=== PATIENT | male | born 1930 | race Caucasian/White ===

== ENCOUNTER 2016-11-18 08:43 | Observation (INO) | payer MEDICARE ==
[~2016-11-18] VITALS: Ht 167.6 cm; Wt 65.0 kg
[2016-11-18] VITALS (8 sets, daily range): BP systolic 106–164; BP diastolic 62–80; PULSE 68–85; RESP 16–18; TEMP 96.1–97.7; O2SAT 95–98
[~2016-11-18 08:43] MED LIST: CLOP75 PO; METO25 PO; NITR0.4S SL; RAMI2.5C29 PO; ZOCO40TA PO
--- NOTE | 2016-11-18 09:03 | PD ---
HPI Chief Complaint: Dizziness Time Seen by Provider: 08:54 Travel History International Travel<30 days: No Contact w/Intl Traveler<30days: No History of Present Illness HPI 86-year-old male arrives with a complaint of lightheadedness as if he is going to lose consciousness since he woke up this morning. He sat on the edge of his bed upon waking up. He then reports feeling as if everything was in "slow motion" as he attempted to walk to his bedroom door, at times leaning against furniture to do so. He states he almost fell down. He goes on to state "I couldn't move." No similar prior event has occurred. He denies the sensation of vertigo. EMS and RN report he complained of nausea. He offers no other medical complaint. The review of systems is negative. There has been no change in medication or his normal routine lately. PFSH Past Medical History Autoimmune Disease: No Blood Disorders: No Cancer: No Cardiac Catheterization: Yes (2004) Cardiovascular Problems: Yes (CARDIAC STENT X 1) High Cholesterol: Yes Chemotherapy: No Coronary Artery Disease: Yes Diabetes: No Diminished Hearing: No Endocrine: No Glaucoma: No Genitourinary: Yes (POST TURP BPH) Hepatitis: No Hiatal Hernia: No Hypertension: Yes Immune Disorder: No Musculoskeletal: No Neurologic: No Psychiatric: No Respiratory: No Immunizations Current: No Radiation Therapy: No Thyroid Disease: No Past Surgical History Abdominal Surgery: No AICD: No Body Medical Devices: CARDIAC STENT X 1; INT FIX 2 PLATES IN LEFT ELBOW Cardiac Surgery: Yes (CARDIAC CATH WITH STENT PLACEMENT X1 2003 ) Coronary Stent: Yes (2004) Endocrine Surgery: No Eye Surgery: Yes (PTOSIS LEFT UPPER EYELID REPAIR ) Genitourinary Surgery: Yes (RESECTION OF PROSTATE (TURP) ) Gynecologic Surgery: No Joint Replacement: No Pacemaker: No Thoracic Surgery: Yes (TUMOR LEFT BREAST EXCISED, BENIGN / FATTY TUMOR ON BACK X 2 ) Other Surgery: Yes (FATTY TUMORS REMOVED OFF BACK IN 80'S 50'S OFF OF RIGHT CHEST) Social History Alcohol Use: No Tobacco Use: No Substance Use: No Allergies-Medications (Allergen,Severity, Reaction): Coded Allergies: Penicillin (Verified Allergy, Severe, ANAPHYLAXIS, 11/18/16) Reported Meds & Prescriptions Reported Meds & Active Scripts Active Reported Temazepam 15 Mg Cap 15 Mg PO HS PRN Simvastatin 20 Mg Tab 20 Mg PO HS Ramipril 5 Mg Cap 5 Mg PO DAILY Plavix (Clopidogrel Bisulfate) 75 Mg Tab 75 Mg PO DAILY Nitrostat (Nitroglycerin) 0.4 Mg Subl 0.4 Mg SL PRN 1 TAB SL EVERY 5 MINS X 3 PRN CHEST PAIN Metoprolol Tartrate 25 mg (Metoprolol Tartrate) 25 Mg Tab 12.5 Mg PO DAILY HOLD FOR SYSTOLIC BP BELOW 120 Zocor 40 mg (Simvastatin) 40 Mg Tab 20 Mg PO HS Altace (Ramipril) 2.5 Mg Cap 5 Mg PO Q CELY HOLD FOR SYSTOLIC BP OF BELOW 120 Plavix (Clopidogrel Bisulfate) 75 Mg Tab 75 Mg PO DAILY Review of Systems Except as stated in HPI: all other systems reviewed are Neg General / Constitutional: No: Fever HENT: Positive: Lightheadedness, No: Headaches Cardiovascular: No: Chest Pain or Discomfort, Palpitations, Diaphoresis, Syncope Respiratory: No: Shortness of Breath, Night Sweats Gastrointestinal: No: Nausea, Vomiting, Diarrhea Neurologic: No: Weakness, Dizziness, Syncope, Focal Abnormalities, Coordination Problem Physical Exam Narrative GENERAL: 86 yo M, pleasant, NAD SKIN: Warm and dry. HEAD: Atraumatic. Normocephalic. EYES: Pupils equal and round. No scleral icterus. No injection or drainage. No nystagmus. ENT: No nasal bleeding or discharge. Mucous membranes pink and moist. NECK: Trachea midline. No JVD. CARDIOVASCULAR: Irregular. Rate approx 66. RESPIRATORY: No accessory muscle use. Clear to auscultation. Breath sounds equal bilaterally. GASTROINTESTINAL: Abdomen soft, non-tender, nondistended. Hepatic and splenic margins not palpable. MUSCULOSKELETAL: Extremities without clubbing, cyanosis, or edema. No obvious deformities. NEUROLOGICAL: Awake and alert. No obvious cranial nerve deficits. Motor grossly within normal limits. Five out of 5 muscle strength in the arms and legs. Normal speech. PSYCHIATRIC: Appropriate mood and affect; insight and judgment normal. Data Data Last Documented VS Vital Signs Date Time Temp Pulse Resp B/P Pulse Ox O2 Delivery O2 Flow Rate FiO2 11/18/16 10:01 71 16 153/79 98 11/18/16 08:43 Room Air 11/18/16 08:43 97.7 VS removed Orders Electrocardiogram (11/18/16 09:03) Basic Metabolic Panel (Bmp) (11/18/16 09:03) Complete Blood Count With Diff (11/18/16 09:03) Magnesium (Mg) (11/18/16 09:03) Ct Brain W/O Iv Contrast(Rout) (11/18/16 09:03) Blood Glucose (11/18/16 09:03) Ecg Monitoring (11/18/16 09:03) Iv Access Insert/Monitor (11/18/16 09:03) Oximetry (11/18/16 09:03) Sodium Chloride 0.9% Flush (Ns Flush) (11/18/16 09:15) Chest, Single Ap (11/18/16 ) Troponin I (11/18/16 09:46) Ondansetron Inj (Zofran Inj) (11/18/16 10:00) Sodium Chlorid 0.9% 500 Ml Inj (Ns 500 M (11/18/16 10:00) Cta Brain W Iv Contrast W 3d (11/18/16 ) Cta Neck W Iv Contrast W 3d (11/18/16 ) Iohexol 350 Inj (Omnipaque 350 Inj) (11/18/16 12:43) Admit Order (Ed Use Only) (11/18/16 13:01) Labs Laboratory Tests Test 11/18/16 09:10 White Blood Count 5.5 TH/MM3 Red Blood Count 4.53 MIL/MM3 Hemoglobin 13.2 GM/DL Hematocrit 39.7 % Mean Corpuscular Volume 87.8 FL Mean Corpuscular Hemoglobin 29.2 PG Mean Corpuscular Hemoglobin 33.3 % Concent Red Cell Distribution Width 13.6 % Platelet Count 161 TH/MM3 Mean Platelet Volume 7.6 FL Neutrophils (%) (Auto) 53.9 % Lymphocytes (%) (Auto) 36.2 % Monocytes (%) (Auto) 8.0 % Eosinophils (%) (Auto) 1.1 % Basophils (%) (Auto) 0.8 % Neutrophils # (Auto) 3.0 TH/MM3 Lymphocytes # (Auto) 2.0 TH/MM3 Monocytes # (Auto) 0.4 TH/MM3 Eosinophils # (Auto) 0.1 TH/MM3 Basophils # (Auto) 0.0 TH/MM3 CBC Comment DIFF FINAL Differential Comment Sodium Level 143 MEQ/L Potassium Level 3.6 MEQ/L Chloride Level 106 MEQ/L Carbon Dioxide Level 29.0 MEQ/L Anion Gap 8 MEQ/L Blood Urea Nitrogen 19 MG/DL Creatinine 0.83 MG/DL Estimat Glomerular Filtration 87 ML/MIN Rate Random Glucose 111 MG/DL Calcium Level 8.6 MG/DL Magnesium Level 2.2 MG/DL Troponin I 0.02 NG/ML [facility] Medical Decision Making Medical Screen Exam Complete: Yes Emergency Medical Condition: Yes Differential Diagnosis anemia, renal failure, arrhythmia, intracranial lesion, infection Narrative Course CBC & BMP Diagram 11/18/16 09:10 The troponin is 0.02 EKG reveals atrial fibrillation with a rate of 66 Last [address] 11/18/16 0903 Signed Impressions: Service Date/Time: Friday, November 18, 2016 09:27 - CONCLUSION: 1. No evidence of acute intracranial pathology. No masses are identified. 2. 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 Bolus infused CT angiography of the brain is recommended for further evaluation. Donis Blackwell MD Head CTA 11/18/16 0000 Signed Impressions: Service Date/Time: Friday, November 18, 2016 10:47 - CONCLUSION: 1. 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 Chaparro Katz MD Patient has been reassessed a few times during his ER stay. He remains quite weak. We'll admit as he might have new onset atrial fibrillation with her most recent EKG on record showing a sinus rhythm. He also is too weak to even stand up in the ER. Case was discussed with Dr. Rodriguez. Diagnosis Primary Impression: Atrial fibrillation Qualified Code: I48.91 - Atrial fibrillation, unspecified type Additional Impressions: Nausea Lightheadedness Admitting Information Admitting Physician Requests: Observation Juno Bingham MD Nov 18, 2016 09:03
[2016-11-18] MEDS ORDERED: SODIUM CHLORIDE 0.9% FLUSH 10 ML FLUSH IVF PRN (09:15)
[2016-11-18 09:38] LABS: BASOPHIL % 0.8 % (0.0-2.0); EOSINOPHIL # 0.1 TH/MM3 (0-0.4); EOSINOPHIL % 1.1 % (0.0-4.0); HEMATOCRIT 39.7 % (39.0-51.0); HEMO FLAGS DIFF FINAL; LYMPH % 36.2 % (9.0-44.0); MEAN CELL VOLUME 87.8 FL (80.0-100.0); MEAN CORPUSCULAR HEMOGLOBIN 29.2 PG (27.0-34.0); MEAN CORPUSCULAR HGB CONC 33.3 % (32.0-36.0); NEUT % 53.9 % (16.0-70.0); PLATELET COUNT 161 TH/MM3 (150-450); RED BLOOD COUNT 4.53 MIL/MM3 (4.50-5.90); RED CELL DISTRIBUTION WIDTH 13.6 % (11.6-17.2); WHITE BLOOD COUNT 5.5 TH/MM3 (4.0-11.0)
--- NOTE | 2016-11-18 09:45 | RADHPO ---
EXAM DATE/TIME: 11/18/2016 09:27 [facility] COMPARISON: CHEST SINGLE AP, February 07, 2013, 15:04. INDICATIONS : Syncopal episode. Nausea. vomiting. Vertigo. MEDICAL HISTORY : Hypertension. Hypercholesterolemia. SURGICAL HISTORY : Cardiac catheterization with stent placement. Prostate resection. Left elbow. Fatty tumors removed fr om right chest & back. ENCOUNTER: Initial ACUITY: 1 day PAIN SCORE: 0/10 LOCATION: chest FINDINGS: A single view of the chest demonstrates the lungs to be symmetrically aerated without evidence of mas s, infiltrate or effusion. The cardiomediastinal contours are unremarkable. Osseous structures are intact. CONCLUSION: No acute disease. Chaparro Katz MD on November 18, 2016 at 9:43 Board Certified Radiologist. This report was verified electronically.
[2016-11-18 09:58] LABS: POTASSIUM 3.6 MEQ/L (3.5-5.1)
[2016-11-18 10:00] LABS: MAGNESIUM 2.2 MG/DL (1.5-2.5)
[2016-11-18] MEDS ORDERED: SODIUM CHLORID 0.9% 500 ML INJ 500 ML IV ONE (10:00)
[2016-11-18] MEDS ORDERED: ONDANSETRON HCL 4 MG/2 ML VIAL IV PUSH ONE (10:00)
--- NOTE | 2016-11-18 10:07 | RADHPO ---
EXAM DATE/TIME: 11/18/2016 09:27 [facility] COMPARISON: CT BRAIN W/O CONTRAST, August 03, 2013, 14:35. INDICATIONS : Dizziness, lightheaded and nausea. RADIATION DOSE: 66.96 CTDIvol (mGy) MEDICAL HISTORY : Hypertension. Macular degeneration. Blind. Coronary artery disease. SURGICAL HISTORY : Coronary artery stent. ENCOUNTER: Initial ACUITY: 1 day PAIN SCALE: 0/10 LOCATION: cranial TECHNIQUE: Multiple contiguous axial images were obtained of the head. Using automated exposure control and adj ustment of the mA and/or kV according to patient size, radiation dose was kept as low as reasonably a chievable to obtain optimal diagnostic quality images. FINDINGS: Noncontrast axial head CT demonstrates the ventricles to be normal in size and configuration with a n ormal sulcal pattern. No acute intracranial hemorrhage, acute cortical infarction, mass or midline sh ift is seen. Posterior fossa structures are unremarkable with the exception of a prominent basilar ap ex. This may reflect a small aneurysm. CT angiography is recommended for further evaluation if clinic ally indicated. Bone windows are unremarkable. CONCLUSION: 1. No evidence of acute intracranial pathology. No masses are identified. 2. 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 Bolus infused CT angiography of the brain is recommended for [facility] er evaluation. Donis Blackwell MD on November 18, 2016 at 10:04 Board Certified Radiologist. This report was verified electronically.
--- NOTE | 2016-11-18 12:28 | RADHPO ---
EXAM DATE/TIME: 11/18/2016 10:47 [facility] COMPARISON: No previous studies available for comparison. INDICATIONS : Abnormal CT brain. Evaluate for aneurysm. IV CONTRAST: 85 cc Omnipaque 350 (iohexol) IV ; Cumulative dose for multiple exams. RADIATION DOSE: 50.87 CTDIvol (mGy) ; Combined studies MEDICAL HISTORY : Cardiovascular disease. Hypertension. Macular degeneration. SURGICAL HISTORY : Coronary artery stent. ENCOUNTER: Initial ACUITY: 1 day PAIN SCALE: 0/10 LOCATION: cranial TECHNIQUE: Volumetric scanning was performed using a multi-row detector CT scanner. The data was post processed with a variety of visualization algorithms including full volume maximum intensity projection, multi -planar sliding thin slab reformation, curved planar reformation, and surface rendering techniques. Using automated exposure control and adjustment of the mA and/or kV according to patient size, radiat ion dose was kept as low as reasonably achievable to obtain optimal diagnostic quality images. FINDINGS: Examination of the anterior circulation demonstrates no evidence of aneurysm or vascular information. No intracranial stenosis is identified. The distal cerebral vessels fill normally. Examination of posterior fossa also demonstrates no evidence of aneurysm or vascular malformation. Th e vertebral arteries are codominant. There is ectasia of the basilar apex but no evidence of brianna an eurysm. CONCLUSION: 1. 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 This report was verified electronically.
[2016-11-18] MEDS ORDERED: IOHEXOL 350 MG/ML 10 ML VIAL (for RAD DIAG) IV ONE (12:43)
--- NOTE | 2016-11-18 13:59 | RADHPO ---
EXAM DATE/TIME: 11/18/2016 10:47 [facility] COMPARISON: CT BRAIN W/O CONTRAST, November 18, 2016, 9:27. INDICATIONS : Abnormal CT brain. Evaluate for aneurysm. IV CONTRAST: 85 cc Omnipaque 350 (iohexol) IV ; Cumulative dose for multiple exams. RADIATION DOSE: 50.87 CTDIvol (mGy) ; Combined studies MEDICAL HISTORY : Cardiovascular disease. Hypertension. Macular degeneration. SURGICAL HISTORY : Coronary artery stent. ENCOUNTER: Initial ACUITY: 1 day PAIN SCALE: 0/10 LOCATION: neck Elevated flow velocities and ICA/CCA ratios have been found to correlate with increased degrees of vessel stenosis, calculated as percentage of diameter relative to a normal segment of distal ICA/CCA. TECHNIQUE: Volumetric scanning was performed using a multirow detector CT scanner. The data was post processed with a variety of visualization algorithms including full-volume maximum intensity projection, multip lanar sliding thin-slab reformation, curved-planar reformation, and surface-rendering techniques. Us ing automated exposure control and adjustment of the mA and/or kV according to patient size, radiatio n dose was kept as low as reasonably achievable to obtain optimal diagnostic quality images. FINDINGS: AORTIC ARCH: There is a three-vessel origin of the great vessels from the aorta. No evidence of ostial narrowing. RIGHT CAROTID: The common carotid artery is intact. The carotid bulb has a normal configuration without ulceration o r narrowing. The internal carotid artery lumen is smooth without stenosis. The external carotid charisse ry is intact. There is minimal plaquing of the bifurcation. LEFT CAROTID: The common carotid artery is intact. The carotid bulb has a normal configuration without ulceration or narrowing. The internal carotid artery lumen is smooth without stenosis. The external carotid ar nathan is intact. There is minimal atherosclerotic plaquing of the bifurcation. VERTEBRALS: The vertebral arteries have a symmetric diameter. No stenotic lesions are seen. CONCLUSION: 1. There is mild atherosclerotic plaquing of the carotid bifurcations bilaterally. There is no hemody namically significant carotid artery stenosis. 2. CTA of the brain to evaluate the basilar tip is pending. Juno Sarkar MD on November 18, 2016 at 13:54 Board Certified Radiologist. This report was verified electronically.
[2016-11-18 14:01] LABS: BLOOD, URINE MOD (NEG); GLUCOSE,URINE NEG (NEG); KETONE, URINE TRACE mg/dL (NEG); NITRITE,URINE NEG (NEG)
[2016-11-18 14:08] LABS: METHOD OF COLLECTION CATH; URINE COLOR YELLOW (YELLW/STRAW)
[2016-11-18 14:09] LABS: COMMENT (UR) CATH-CULT NOT IND; CULTURE IF INDICATED CATH CULTURE NOT IND; WBC, URINE 0-2 /hpf (0-5)
[2016-11-18] MEDS ORDERED: SODIUM CHLORIDE 0.9% FLUSH 10 ML FLUSH IV FLUSH PRN (14:15)
[2016-11-18] MEDS ORDERED: PLAV75TA29 PO (14:19)
[2016-11-18] MEDS ORDERED: TEMA15CA PO (14:19)
[2016-11-18] MEDS ORDERED: SIMV20TA PO (14:19)
[2016-11-18] MEDS ORDERED: RAMI5CAP PO (14:19)
[2016-11-18] MEDS: ENOXAPARIN SODIUM 80 MG/0.8 ML SYRINGE SQ SCH (16:32)
[2016-11-18] MEDS: RAMIPRIL 5 MG CAP PO SCH (16:32)
[2016-11-18] MEDS: CLOPIDOGREL 75 MG TAB PO SCH (16:32)
[2016-11-18] MEDS ORDERED: DOCUSATE SODIUM 100 MG CAP PO PRN (17:45)
[2016-11-18] MEDS ORDERED: ONDANSETRON HCL 4 MG/2 ML VIAL IV PRN (17:45)
[2016-11-18] MEDS ORDERED: TEMAZEPAM 15 MG CAP PO PRN (17:45)
[2016-11-18] MEDS ORDERED: ACETAMINOPHEN 325 MG TAB PO PRN (17:45)
[2016-11-18] MEDS ORDERED: NITROGLYCERIN 0.4 MG SL 25 TABS/BTL SL PRN (18:00)
[2016-11-18] MEDS ORDERED: PANTOPRAZOLE SODIUM 40 MG VIAL IV PUSH SCH (18:00)
[2016-11-18] MEDS: SODIUM CHLOR 0.9% 1000 ML INJ 1,000 ML IV SCH (18:41)
--- NOTE | 2016-11-18 19:01 | EC ---
Study Study Date:11/18/2016 STUDY CONCLUSIONS SUMMARY - Left ventricle: The cavity size was normal. Wall thickness was normal. Systolic function was normal. The estimated ejection fraction was in the range of 55% to 60%. Wall motion was normal; there were no regional wall motion abnormalities. - Mitral valve: Severe regurgitation. - Tricuspid valve: Moderate regurgitation. If LV function is below 40, please consider prescribing an ACEI or ARB or document rationale for non-use. PROCEDURE DATA STUDY STATUS: Elective. Procedure: Transthoracic echocardiography. Image quality was good. Scanning was performed from the parasternal, apical, and subcostal acoustic windows. Study completion: The patient tolerated the procedure well. Transthoracic echocardiography. M-mode, complete 2D, complete spectral Doppler, and color Doppler. Height: Height: 65in. Weight: Weight: 141.7lb. Body mass index: BMI: 23.6kg/m^2. Body surface area: BSA: 1.71m^2. Patient status: Inpatient. CARDIAC ANATOMY LEFT VENTRICLE: The cavity size was normal. Wall thickness was normal. Systolic function was normal. The estimated ejection fraction was in the range of 55% to 60%. Wall motion was normal; there were no regional wall motion abnormalities. AORTIC VALVE: Trileaflet; normal thickness leaflets. Doppler: Transvalvular velocity was within the normal range. There was no stenosis. No regurgitation. Peak gradient: 12mm Hg (S). AORTA: Aortic root: The aortic root was normal in size. MITRAL VALVE: Structurally normal valve. Doppler: Transvalvular velocity was within the normal range. There was no evidence for stenosis. Severe regurgitation. Valve area by pressure half-time: 5.79cm^2. Indexed valve area by pressure half-time: 3.39cm^2/m^2. Peak gradient: 2mm Hg (D). LEFT ATRIUM: The atrium was normal in size. RIGHT VENTRICLE: The cavity size was normal. Wall thickness was normal. PULMONIC VALVE: Doppler: Transvalvular velocity was within the normal range. There was no evidence for stenosis. No regurgitation. TRICUSPID VALVE: Structurally normal valve. Doppler: Transvalvular velocity was within the normal range. Moderate regurgitation. Peak gradient: 24mm Hg (D). PULMONARY ARTERY: The main pulmonary artery was normal-sized. Systolic pressure was within the normal range. RIGHT ATRIUM: The atrium was normal in size. PERICARDIUM: There was no pericardial effusion. SYSTEMIC VEINS: Inferior vena cava: The vessel was normal in size. Patient weight: 141.7lb _Ejection fraction:_ 65-75% _Fractional shortening:_ 32% up to 5Kg 5-11.5Kg 11.6-22.9Kg 23-45Kg 45-57Kg Aortic Root 7-13 <17 13-22 17-27 17-27 LA diam 6-13 <23 24-38 33-47 37-40 RVID 10-17 7-15 7-15 7-18 8-17 LVIDd 12-22 <32 24-38 33-47 37-40 LVPW 2-4 3-6 5-7 6-8 7-8 IVS 2-4 3-6 5-7 6-8 7-8 BASIC MEASUREMENTS ADULT NORMAL Left ventricle LV internal dimension, ED, chordal 45.7 mm 43-52 level, PLAX LV internal dimension, ES, chordal 31.3 mm 23-38 level, PLAX Fractional shortening, chordal level, 32 % >29 PLAX LV posterior wall thickness, ED 10.4 mm IVS/LVPW ratio, ED 0.99 <1.3 Volume, ED, MOD, 1-plane 102 ml Volume, ES, MOD, 1-plane 42 ml Ejection fraction, MOD, 1-plane 59 % Stroke volume, MOD, 1-plane 60 ml Volume index, ED, MOD, 1-plane 60 ml/m^2 Volume index, ES, MOD, 1-plane 25 ml/m^2 Stroke index, MOD, 1-plane 35.1 ml/m^2 Ventricular septum Septal thickness, ED 10.3 mm Aortic valve Leaflet separation 19 mm 15-26 Right ventricle RV internal dimension, ED, PLAX 27.4 mm 19-38 BASIC MEASUREMENTS ADULT NORMAL Aortic valve Leaflet separation 19 mm 15-26 Aorta Root diameter, ED 34 mm 20-37 Left atrium Anterior-posterior dimension, ES 40 mm 19-40 Anterior-posterior dimension index, ES *2.34 cm/m^2 <2.2 LA/aortic root ratio 1.18 DOPPLER MEASUREMENTS ADULT NORMAL Main pulmonary artery Pressure, S 22 mm Hg =30 Aortic valve Peak velocity, S 172 cm/s Peak gradient, S 12 mm Hg Regurgitant velocity, ED 434 cm/s Regurgitant deceleration 3280 cm/s^2 Regurgitant pressure half-time 387 ms Regurgitant gradient, ED 75 mm Hg Mitral valve Peak E-wave velocity 76.5 cm/s Peak A-wave velocity 106 cm/s Pressure half-time 38 ms Peak gradient, D 2 mm Hg Peak E/A ratio 0.7 Valve area, pressure half-time 5.79 cm^2 Valve area index, pressure half-time 3.39 cm^2/m^2 Tricuspid valve Peak gradient, D 24 mm Hg Maximal inflow velocity 244 cm/s Regurgitant peak velocity 204 cm/s Peak RV-RA gradient, S 17 mm Hg Maximal regurgitant velocity 204 cm/s Systemic veins Estimated CVP 10 mm Hg Right ventricle RV pressure, S 27 mm Hg <30 Pulmonic valve Peak velocity, S 115 cm/s Acceleration time 528 ms LEGEND: Mean values are shown as u=mean value. Asterisk (*) lauren values outside specified normal range. Prepared and signed by Facundo Brown [id number]
--- NOTE | 2016-11-18 20:26 | MH ---
cc: RIMMA CONTI DATE OF ADMISSION 11/18/2016 ADMISSION DIAGNOSIS Generalized weakness, atrial fibrillation. HISTORY OF THE PRESENT ILLNESS Mr. Monterroso is a very pleasant 86-year-old gentleman who was in his usual state of health until this morning. He states when he went to get up this morning, he sat up on the side of the bed and when he did so he felt like he suddenly was going to pass out. His was in another room so he tried to call out to her. He states that when he finally was able to get up from bed and he tried to walk to the door, he had great difficulty. He had to walk to the door holding on to the furniture and he felt as though his limbs were heavy. He felt as though he was moving in slow motion. Finally he was able to reach his and they called the neighbor and eventually EMS which brought him to the emergency room. Since being in the emergency room he also states that he has been very nauseous. He denies any actual chest pain, shortness of breath or palpitations. He denies vertigo or the sensation of room spinning. He just feels like he is going to pass out when he changes position. They actually tried to do orthostatics on him in the ER and they were barely able to sit him up in bed without him becoming symptomatic. The ER nurse is able to tell me that his blood pressure and heart rate did not change at that point. He has not had any apparent speech difficulty. He is legally blind with macular degeneration. He denies taking any new medications or any change in his medications. He has not had his medications since this morning. The symptoms are actually fairly acute onset. PAST MEDICAL HISTORY Significant for: 1. Coronary artery disease with stents. 2. As stated he has the macular degeneration. 3. He is hard of hearing. 4. He did have prior episode of hematemesis in the past. 5. Does have a history of hyperlipidemia. 6. Insomnia. 7. He did have a Michelle Breen tear. 8. He has had prior echo showing, I think his last one was in 2014 showing an ejection fraction of 55-60%. The left atrial cavity size at that time was moderately increased. He did have mild to moderate mitral regurgitation and mild to moderate tricuspid regurgitation. 9. He also has osteoarthritis of his knee. 10. And tremor. PAST SURGICAL HISTORY Surgical history includes: 1. He has had elbow surgery for repair of a fracture. 2. He has had left thumb amputation. 3. He has had a transurethral resection of prostate. 4. Repair of ectropion of his left lower eyelid and ptosis of his left upper eyelid. ALLERGIES HE IS ALLERGIC TO PENICILLIN WHICH CAUSES AN ANAPHYLACTIC REACTION. GABAPENTIN AND LORTAB CAUSE NAUSEA. SOCIAL HISTORY Habits, he does not consume alcohol nor does he smoke. He is currently retired. He lives with his . He is legally blind in the right eye and is able to get around with [employer]. FAMILY HISTORY Noncontributory. REVIEW OF SYSTEMS He states he has had good appetite. He has been eating well. No abdominal pain. No diarrhea or constipation. No change in bowel movements. He has noted recently that his voice has gotten weaker and he has become a little bit more hoarse. He denies any chest pain with any of this. No palpitations. He denies any breathing difficulties. He does notice that his ambulation has become a little worse, and he is having a little bit more trouble ambulating, going to the side as well as having some worsening tremor. PHYSICAL EXAMINATION VITAL SIGNS: When he presented to the ER included a temperature of 97.7, pulse is 85, respirations 16, blood pressure was 164/80, pulse ox is 98% on room air. When I saw him later in the day his pulse is 68, respiratory rate 16, blood pressure was 142/71, pulse ox is 98%. GENERAL: He was lying in the emergency room cot. He was wearing the sunglasses that he typically wears over his eyes. He was lying fairly flat, did not appear to be any acute distress. He had both hearing aids in place. HEENT: He had a moist oral mucosa. NECK: His neck was supple. I did not hear any bruits. LUNGS: His lungs were clear to auscultation. No rhonchi, rales or wheezes. CARDIOVASCULAR: His heart when you listen closely was irregular but the rate was not fast. He was not tachycardiac. ABDOMEN: His abdomen showed good bowel sounds in all four quadrants. No rebound or guarding. EXTREMITIES: He actually moved all of his extremities well. His that he be actually moved all his extremities well with good strength. He was able to turn his head without feeling any of the dizziness but he was afraid to even sit up in the emergency room cot for further evaluation. LABORATORY DATA Lab work that was done when he came in showed a white count of 5.5, hemoglobin of 13.2, hematocrit of 39.7, platelet count of 161. Sodium was 143, potassium was 3.6, BUN was 19, creatinine was 0.83, random glucose was 111. Troponin that was done was 0.02. Urine showed moderate occult blood but no indication for culture. IMAGING When he presented a chest x-ray was done, showed no acute disease. Head CT was done, was noncontrast, there was no acute extracranial hemorrhage. No acute infarction, mass or midline shift. He did have a prominent basalar apex and this was felt to possibly reflect a small aneurysm. A CT angiography was recommended. This was ordered by the ER physician and this showed ectasia of the of the basilar apex but no evidence of aneurysm. A CTA of the neck that was done just showed minimal plaquing of the bifurcation the right carotid and in the left carotid. His EKG showed atrial fibrillation even though on the monitor he looks like he might be in a regular rhythm but anyway. ASSESSMENT/PLAN An 86-year-old gentleman presenting to the emergency room with generalized weakness and presyncope. At this time the only new finding is what appears to be atrial fibrillation. His heart rate is controlled. I am not quite sure this is actually the cause of his problems. However, will admit him, monitor his heart rhythm, order a . Dictation cut off at this point. Rimma Conti MD CSGina/BARBARA /6:47 PM /7:17 PM
[2016-11-18] MEDS ORDERED: PRAVASTATIN SOD 40 MG TAB PO SCH (21:00)
[2016-11-18] MEDS: SODIUM CHLORIDE 0.9% FLUSH 10 ML FLUSH IV FLUSH SCH (21:00)
[2016-11-18 21:56] LABS: MAGNESIUM 2.2 MG/DL (1.5-2.5)
[2016-11-19] VITALS: BP 118/65; PULSE 57; RESP 16; TEMP 97.7; O2SAT 98
[2016-11-19] MEDS: ENOXAPARIN SODIUM 80 MG/0.8 ML SYRINGE SQ SCH (03:07)
[2016-11-19 04:00] VITALS: BP 126/67; PULSE 64; RESP 16; TEMP 98.1; O2SAT 98
[2016-11-19] MEDS: SODIUM CHLOR 0.9% 1000 ML INJ 1,000 ML IV SCH (05:55)
[2016-11-19 06:45] LABS: HEMATOCRIT 38.5 % (39.0-51.0); MEAN CELL VOLUME 87.1 FL (80.0-100.0); MEAN CORPUSCULAR HEMOGLOBIN 28.3 PG (27.0-34.0); MEAN CORPUSCULAR HGB CONC 32.5 % (32.0-36.0); PLATELET COUNT 169 TH/MM3 (150-450); RED BLOOD COUNT 4.43 MIL/MM3 (4.50-5.90); RED CELL DISTRIBUTION WIDTH 13.4 % (11.6-17.2); REVIEW FLAG FINAL; WHITE BLOOD COUNT 7.4 TH/MM3 (4.0-11.0)
[2016-11-19 06:57] LABS: POTASSIUM 3.8 MEQ/L (3.5-5.1)
--- NOTE | 2016-11-19 07:57 | PD.CONS ---
HPI Service CV Consult Requested By Reason for Consult a-fib Primary Care Physician Rimma Rodriguez MD History of Present Illness Here with PAD, CAD s/p PCI [place] L[place] 2004, hypertension , MVP and mild to moderate MR for balance difficulty. He states that when he woke yesterday morning he sat on the side of the bed like he normally does. He states he tried to get up but felt as though that he might pass out. He states he could not get his legs to work. He felt better when he was able to lie down. He denies any chest pain, shortness of breath or palpitations. ECG here shows a-fib which is a new problem for him (Parth Coles) Consult Requested By EKG's personally reviewed. No atrial fibrillation is observed. All EKGs are sinus rhythm with PACs or fusion beats. These would not cause presyncope. aspirin 81 daily May consider outpatient 24 hr holter monitor. Avoid caffeine. echocardiogram - Reported : "Normal EF. severe MR and moderate TR." no reported SOB. no LA enlargement or PHTN would suggest that the severity may be slightly overestimated by visual assessment. Prior echo suggested mild-mod MR. With EF preserved, his age, and relative lack of symptoms, we will probably watch it conservatively. The only definitive treatment would entail open heart surgery, ie MVR or mitral valve annuloplasty ring. DC planning. FU in OPD. call with further questions will sign off (Tj Bhatia MD) Review of Systems Consitutional: DENIES: Fatigue, Fever, Chills, Weight gain, Weight loss Eyes: DENIES: Amaurosis [place], Change in vision HEENT: DENIES: Lightheadedness, Change in hearing Respiratory: DENIES: See HPI, Cough, Snoring, Shortness of breath, Wheezing, Sputum production Cardiovascular: COMPLAINS OF: See HPI Gastrointestinal: DENIES: Nausea, Vomiting, Change in bowel habits, Reflux, Bloody stools, Melena Genitourinary: DENIES: Urinary incontinence, Difficulty voiding Integumentary: DENIES: Rash Neurologic: DENIES: Tingling or numbness, Memory problems, Poor Balance, Stroke symptoms Musculoskeletal: DENIES: Joint pain, Muscle pain, Limited range of motion, Back pain Hematologic: DENIES: Bruising tendencies, Bleeding tendencies Endocrine: DENIES: Weight gain, Weight loss, Thyroid disease (Parth Coles ) Past Family Social History Allergies: Coded Allergies: Penicillin (Verified Allergy, Severe, ANAPHYLAXIS, 11/18/16) Past Medical History see HPI CKD macular degeneration Michelle-Breen tear Past Surgical History see HPI colonoscopy cystoscopy EGD elbow surgery hand surgery Ptosis surgery OS TURP Reported Medications Reported Meds & Active Scripts Active Reported Temazepam 15 Mg Cap 15 Mg PO HS PRN Simvastatin 20 Mg Tab 20 Mg PO HS Ramipril 5 Mg Cap 5 Mg PO DAILY Plavix (Clopidogrel Bisulfate) 75 Mg Tab 75 Mg PO DAILY Nitrostat (Nitroglycerin) 0.4 Mg Subl 0.4 Mg SL PRN 1 TAB SL EVERY 5 MINS X 3 PRN CHEST PAIN Metoprolol Tartrate 25 mg (Metoprolol Tartrate) 25 Mg Tab 12.5 Mg PO DAILY HOLD FOR SYSTOLIC BP BELOW 120 Zocor 40 mg (Simvastatin) 40 Mg Tab 20 Mg PO HS Altace (Ramipril) 2.5 Mg Cap 5 Mg PO Q CELY HOLD FOR SYSTOLIC BP OF BELOW 120 Plavix (Clopidogrel Bisulfate) 75 Mg Tab 75 Mg PO DAILY Active Ordered Medications Current Medications Medications (Trade) Dose Ordered Sig/Jesus Route Start Time Stop Time Status Last Admin (Plavix) 75 mg DAILY PO 11/18/16 15:00 11/18/16 16:32 (NS Flush) 2 ml UNSCH PRN IV FLUSH 11/18/16 14:15 (NS Flush) 2 ml BID IV FLUSH 11/18/16 21:00 11/18/16 21:00 (Aspirin Chew) 81 mg DAILY PO 11/19/16 09:00 (Altace) 5 mg DAILY PO 11/18/16 15:00 11/18/16 16:32 (Pravachol) 40 mg HS PO 11/18/16 21:00 11/18/16 21:20 (Lovenox Inj) 65 mg Q12H SQ 11/18/16 15:00 11/19/16 03:07 (Tylenol) 650 mg Q4H PRN PO 11/18/16 17:45 (Zofran Inj) 4 mg Q6H PRN IV 11/18/16 17:45 (Colace) 100 mg BID PRN PO 11/18/16 17:45 Temazepam 15 mg 15 mg HS PRN PO 11/18/16 17:45 (NS 1000 ml Inj) 1,000 ml @ 84 mls/hr [id number] IV 11/18/16 18:00 11/19/16 05:55 (Nitrostat Sl) 0.4 mg Q5M PRN SL 11/18/16 18:00 (Protonix Inj) 40 mg Q24H IV PUSH 11/18/16 18:00 11/18/16 18:40 Family History noncontributory Social History never smoker denies EtOH or substance abuse (Parth Coles) Physical Exam Vital Signs Vital Signs Date Time Temp Pulse Resp B/P Pulse Ox O2 Delivery O2 Flow Rate FiO2 11/19/16 04:00 98.1 64 16 126/67 98 11/19/16 00:00 97.7 57 16 118/65 98 11/18/16 20:03 78 11/18/16 20:00 97.7 71 16 128/62 98 11/18/16 20:00 96 21 11/18/16 18:00 96.1 75 18 133/76 95 11/18/16 16:45 68 16 106/68 98 11/18/16 14:00 68 16 142/71 98 11/18/16 10:01 71 16 153/79 98 11/18/16 09:00 74 16 149/78 98 11/18/16 08:43 85 16 98 Room Air 11/18/16 08:43 97.7 85 16 164/80 98 Physical Exam GENERAL: Well-nourished, well-developed patient in no apparent distress. NECK: No JVD. No carotid bruit. CARDIOVASCULAR: IR IR S1/S2 no rub or gallop. II/ SERGE [place] RESPIRATORY: No accessory muscle use. Clear to auscultation. Breath sounds equal bilaterally. GASTROINTESTINAL: Abdomen soft, non-tender, nondistended. MUSCULOSKELETAL: Extremities without clubbing, cyanosis, or edema. Laboratory Laboratory Tests Test 11/18/16 11/18/16 11/18/16 11/18/16 09:10 13:37 15:10 20:40 White Blood Count 5.5 Red Blood Count 4.53 Hemoglobin 13.2 Hematocrit 39.7 Mean Corpuscular Volume 87.8 Mean Corpuscular Hemoglobin 29.2 Mean Corpuscular Hemoglobin 33.3 Concent Red Cell Distribution Width 13.6 Platelet Count 161 Mean Platelet Volume 7.6 Neutrophils (%) (Auto) 53.9 Lymphocytes (%) (Auto) 36.2 Monocytes (%) (Auto) 8.0 Eosinophils (%) (Auto) 1.1 Basophils (%) (Auto) 0.8 Neutrophils # (Auto) 3.0 Lymphocytes # (Auto) 2.0 Monocytes # (Auto) 0.4 Eosinophils # (Auto) 0.1 Basophils # (Auto) 0.0 CBC Comment DIFF FINAL Differential Comment Sodium Level 143 Potassium Level 3.6 Chloride Level 106 Carbon Dioxide Level 29.0 Anion Gap 8 Blood Urea Nitrogen 19 Creatinine 0.83 Estimat Glomerular Filtration 87 Rate Random Glucose 111 Calcium Level 8.6 Magnesium Level 2.2 2.2 Troponin I 0.02 0.10 0.10 Urine Collection Type CATH Urine Color YELLOW Urine Turbidity CLEAR Urine pH 7.0 Urine Specific [place] 1.024 Urine Protein NEG Urine Glucose (UA) NEG Urine Ketones TRACE Urine Occult Blood MOD Urine Nitrite NEG Urine Bilirubin NEG Urine Leukocyte Esterase NEG Urine RBC 25-49 Urine WBC 0-2 Microscopic Urinalysis Comment CATH-CULT NOT IND Urine Collection Time 13:37 Total Creatine Kinase 53 72 Thyroid Stimulating Hormone 0.403 3rd Gen Test 11/19/16 05:40 White Blood Count 7.4 Red Blood Count 4.43 Hemoglobin 12.5 Hematocrit 38.5 Mean Corpuscular Volume 87.1 Mean Corpuscular Hemoglobin 28.3 Mean Corpuscular Hemoglobin 32.5 Concent Red Cell Distribution Width 13.4 Platelet Count 169 Mean Platelet Volume 7.8 Sodium Level 143 Potassium Level 3.8 Chloride Level 109 Carbon Dioxide Level 26.0 Anion Gap 8 Blood Urea Nitrogen 17 Creatinine 0.87 Estimat Glomerular Filtration 83 Rate Random Glucose 81 Calcium Level 8.8 (Parth Coles) Result Diagram: 11/19/1653911/19/16539 Assessment and Plan Problem List: (1) Atrial fibrillation (2) Lightheadedness Assessment and Plan AF, his LILIANE-VASC is 3. At this point with his lightheadedness and near syncope he is not a good candidate for anticoagulation. Will start ASA 325 mg daily His lightheadedness seems neurologic in nature Troponin is in the indeterminant range and likely demand mediated (Parth Coles) Problem Qualifiers (1) Atrial fibrillation: Qualified Code: I48.91 - Atrial fibrillation, unspecified type Parth Coles Nov 19, 2016 07:57 Tj Bhatia MD Nov 19, 2016 15:29
[2016-11-19 08:00] VITALS: BP 136/71; PULSE 64; PULSE 80; RESP 20; TEMP 98.8; O2SAT 97
[2016-11-19] MEDS: CLOPIDOGREL 75 MG TAB PO SCH (08:21)
[2016-11-19] MEDS: RAMIPRIL 5 MG CAP PO SCH (08:21)
[2016-11-19] MEDS: SODIUM CHLORIDE 0.9% FLUSH 10 ML FLUSH IV FLUSH SCH (08:21)
[2016-11-19 09:00] VITALS: O2SAT 95
[2016-11-19] MEDS ORDERED: ASPIRIN 81 MG CHEW TAB PO SCH (09:00)
--- NOTE | 2016-11-19 09:05 | EKG ---
Date Performed: 11/19/2016 Time Performed: 06:04:40 PTAGE: 86 years EKG: Sinus bradycardia with sinus arrhythmia with frequent PVCs Left axis deviation rSr'(V1) - p robable normal variant Inferior infarct - age undetermined Low QRS voltages in limb leads Abnormal EC G PREVIOUS TRACING : 11/18/2016 09.17 DOCTOR: Tj Bhatia Interpretating Date/Time 11/19/2016 09:03:59
[2016-11-19 09:22] LABS: FREE T4 1.06 NG/DL (0.76-1.46)
--- NOTE | 2016-11-19 11:17 | EKG ---
Date Performed: 11/18/2016 Time Performed: 09:17:00 PTAGE: 86 years EKG: Sinus rhythm with PACs Left axis deviation Inferior infarct - age undetermined Abnormal ECG PREVIOUS TRACING : 08/03/2013 00.11 DOCTOR: Tj Bhatia Interpretating Date/Time 11/19/2016 11:16:00
[2016-11-19 12:00] VITALS: BP 125/68; PULSE 63; RESP 20; TEMP 97.3; O2SAT 97
--- NOTE | 2016-11-19 12:01 | HHI.PR ---
Subjective Remarks Feels good today. Got to bathroom with help. no dizziness or lightheadedness, hungry Objective Vitals Vital Signs Date Time Temp Pulse Resp B/P Pulse Ox O2 Delivery O2 Flow Rate FiO2 11/19/16 09:00 95 21 11/19/16 08:00 98.8 64 20 136/71 97 11/19/16 08:00 80 11/19/16 04:00 98.1 64 16 126/67 98 11/19/16 00:00 97.7 57 16 118/65 98 11/18/16 20:03 78 11/18/16 20:00 97.7 71 16 128/62 98 11/18/16 20:00 96 21 11/18/16 18:00 96.1 75 18 133/76 95 11/18/16 16:45 68 16 106/68 98 11/18/16 14:00 68 16 142/71 98 11/18/16 11/18/16 11/19/16 15:00 23:00 07:00 Intake Total 500 ml 278 ml 876 ml Output Total 2000 ml 100 ml Balance -1500 ml 278 ml 776 ml Intake Oral 240 ml IV Total 500 ml 278 ml 636 ml Output Urine Total 2000 ml 100 ml Bladder Scan Volume Amount 284 ml # Voids 3 2 # Bowel Movements 0 Result Diagram: 11/19/16 0540 11/19/16 0540 Imaging Last Impressions Head CT 11/18/16 0903 Signed Impressions: Service Date/Time: Friday, November 18, 2016 09:27 - CONCLUSION: 1. No evidence of acute intracranial pathology. No masses are identified. 2. 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 Bolus infused CT angiography of the brain is recommended for further evaluation. Donis Blackwell MD Neck CTA 11/18/16 0000 Signed Impressions: Service Date/Time: Friday, November 18, 2016 10:47 - CONCLUSION: 1. There is mild atherosclerotic plaquing of the carotid bifurcations bilaterally. There is no hemodynamically significant carotid artery stenosis. 2. CTA of the brain to evaluate the basilar tip is pending. Juno Sarkar MD Head CTA 11/18/16 0000 Signed Impressions: Service Date/Time: Friday, November 18, 2016 10:47 - CONCLUSION: 1. 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 Chaparro Katz MD Objective Remarks Lying in bed, wearing his sunglasses NAD irregular cta +bs no tremors, moving all extremities well A/P Problem List: (1) Nausea Status: Acute Plan: no further nausea, will have him eat and see how he does (2) Atrial fibrillation Status: Acute Plan: appears to be new onset, last ekg showed sinus bradycardia , echo has severe MR and mod TR , high risk for falls so far cardiology recommending only asa he is also on plavix Addnedum: discussed with Dr Bhatia who does not feel he was in atrial fibrillation in EKGs will arrange for outpatient holter monitor (3) Pre-syncope Status: Acute Plan: episode of presyncope which may have been more vertigo in nature w/u negative, he already has an appt being schedules as an outpatient with the neurologist for his intermittent tremors Assessment and Plan will monitor today if contnues to do well plan to discharge later this evening or in am Problem Qualifiers (1) Atrial fibrillation: Qualified Code: I48.91 - Atrial fibrillation, unspecified type Rimma Rodriguez MD Nov 19, 2016 12:01
[2016-11-19] MEDS ORDERED: ENOXAPARIN SODIUM 40 MG/0.4 ML SYRINGE SQ SCH (16:00)
[2016-11-19] MEDS ORDERED: Aspirin Chew PO (17:41)
== END 2016-11-19 18:27 | disposition home or self-care (01) ==
LOC: PHED 08:43 → PHEDA 13:03 → INTOOBSV 14:13 → OBSVTOIN 14:13 → PH3B 16:48
PROVIDERS: ADMIT Legal Medicine; ATTEND Legal Medicine
DX: I48.91 Unspecified atrial fibrillation (principal); R42 Dizziness and giddiness; I25.10 Atherosclerotic heart disease of native coronary artery without angina pectoris; I12.9 Hypertensive chronic kidney disease with stage 1 through stage 4 chronic kidney disease, or unspecified chronic kidney disease; N18.9 Chronic kidney disease, unspecified; E78.00 Pure hypercholesterolemia, unspecified; E78.5 Hyperlipidemia, unspecified; M17.9 Osteoarthritis of knee, unspecified; G47.00 Insomnia, unspecified; H54.8 Legal blindness, as defined in USA; H35.30 Unspecified macular degeneration; H91.90 Unspecified hearing loss, unspecified ear; Z95.5 Presence of coronary angioplasty implant and graft; Z88.0 Allergy status to penicillin; Z79.02 Long term (current) use of antithrombotics/antiplatelets; Z88.5 Allergy status to narcotic agent; Z88.8 Allergy status to other drugs, medicaments and biological substances; Z87.19 Personal history of other diseases of the digestive system
CPT/HCPCS: 70450; 70496; 70498; 71010; 80048; 81001; 82550; 83735; 84439; 84443; 84484; 85025; 85027; 93005; 93306; 96361; 96374; 97162; 99285; C9113; G0378; G8987; G8988; J1650; J2405; J7030; J7040; Q9967